=== PATIENT | female | born 1950 | race American Indian/Alaskan Native ===

== ENCOUNTER 2021-06-11 11:42 | Emergency (ER) | payer MEDICARE ==
[2021-06-11 13:02] VITALS: BP 194/104
--- NOTE | 2021-06-11 15:39 | Emergency Department Report ---
ED Extremity Problem HPI - General Chief complaint: Extremity Injury, Lower Stated complaint: RT SIDE PAINS,LEG Source: patient Mode of arrival: Ambulatory Limitations: No Limitations - History of Present Illness Initial comments: 70-year-old -[place] female presents to the emergency room for right leg pain for 1 week. Patient denies any injury. Patient states that the pain is sharp and it radiates up her leg to her hip. States she has been taking Tylenol for pain. Patient denies any numbness to her leg. She does have a history of smoking cigarettes. History of hypertension depression is currently medicated. Nothing makes the pain worse pain medication makes it better. Complaint: extremity pain Onset/Timin -: week(s) Location: right, lower extremity -: Yes myalgia Severity scale (0 -10): 7 Quality: aching Consistency: intermittent Improves with: medication Worsens with: nothing Associated Symptoms: denies other symptoms - Related Data Previous Rx's Medication Instructions Recorded Last Taken Type Naproxen 500 mg PO Q12H PRN #20 tablet 06/11/21 Unknown Rx Allergies Allergy/AdvReac Type Severity Reaction Status Date / Time No Known Allergies Allergy Unverified 06/11/21 12:59 ED Review of Systems ROS: Stated complaint: RT SIDE PAINS,LEG Other details as noted in HPI Comment: All other systems reviewed and negative ED Past Medical Hx - Medications Home Medications: Home Medications Medication Instructions Recorded Confirmed Last Taken Type Naproxen 500 mg PO Q12H PRN #20 tablet 06/11/21 Unknown Rx ED Physical Exam - General Limitations: No Limitations General appearance: alert, in no apparent distress - Head Head exam: Present: atraumatic, normocephalic - Eye Eye exam: Present: normal appearance - ENT ENT exam: Present: normal external ear exam - Neck Neck exam: Present: normal inspection, full ROM - Respiratory Respiratory exam: Present: normal lung sounds bilaterally - Cardiovascular Cardiovascular Exam: Present: regular rate - Expanded Lower Extremity Exam Right Hip exam: Present: normal inspection Upper Leg exam: Present: normal inspection Knee exam: Present: normal inspection Lower Leg exam: Present: tenderness, dislocation (Hyperpigmented) Ankle exam: Present: normal inspection, full ROM Foot/Toe exam: Present: normal inspection, full ROM ED Course Vital Signs 06/11/21 12:59 Temperature 99 F Pulse Rate 83 Respiratory 17 Rate Blood Pressure 194/104 [Right] O2 Sat by Pulse 96 Oximetry ED Medical Decision Making - Radiology Data Radiology results: report reviewed [facility] [address] [place] [address] Vascular Lab Report Signed Patient: HANY BERNAL MR#: [id number] : 1950 Acct:[id number] Age/Sex: 70 / F ADM Date: 06/11/21 Loc: ED Attending Dr: Ordering Physician: NIXON CLANCY Date of Service: 06/11/21 Procedure(s): VL venous duplex LE RT Accession Number(s): [id number] cc: NIXON CLANCY DUPLEX DOPPLER LOWER EXTREMITY VEINS, RIGHT INDICATION: Right lower pain calf smokes cigarettes. TECHNIQUE: Duplex doppler imaging was performed through the veins of the right lower extremity using venous compression and other maneuvers. COMPARISON: No relevant prior imaging study available. FINDINGS: Right Common femoral vein: Negative. Right Superficial femoral vein: Negative. Right Popliteal vein: Negative. Right Calf veins: Negative. Additional findings: None. IMPRESSION: No sonographic evidence for DVT in the right lower extremity. Signer Name: Zackary Villafana Jr, MD Signed: 06/11/2021 4:10 PM Workstation Name: [email or web address] Transcribed By: TTR Dictated By: ZACKARY VILLAFANA JR, MD Electronically Authenticated By: ZACKARY VILLAFANA JR, MD Signed Date/Time: 06/11/211609 DD/ 09 TD/TT: Print Cancel - Medical Decision Making 70-year-old -[place] female presents to the emergency room for right leg pain for 1 week. Patient denies any injury. Patient states that the pain is sharp and it radiates up her leg to her hip. States she has been taking Tylenol for pain. Patient denies any numbness to her leg. She does have a history of smoking cigarettes. History of hypertension depression is currently medicated. Nothing makes the pain worse pain medication makes it better. Doppler right lower extremity has been ordered. Dopplers negative. Patient will be given prescription for naproxen and recommend to discontinue smoking cigarettes as this can be a cause of left leg pain. Critical care attestation.: If time is entered above; I have spent that time in minutes in the direct care of this critically ill patient, excluding procedure time. ED Disposition Clinical Impression: Right leg pain Disposition: TO HOME OR SELFCARE Is pt being admited?: No Does the pt Need Aspirin: No Condition: Stable Instructions: Pain Without a Known Cause Additional Instructions: Ultrasounds negative for a blood clot. I recommend taking pain medication and keep your appointment with your primary care provider. Prescriptions: Naproxen 500 mg PO Q12H PRN #20 tablet PRN Reason: Pain , Severe (7-10) Referrals: Your, primary care provider [Other] - 3-5 Days Time of Disposition: 16:20
--- NOTE | 2021-06-11 16:15 | Vascular Lab Report ---
DUPLEX DOPPLER LOWER EXTREMITY VEINS, RIGHT INDICATION: Right lower pain calf smokes cigarettes. TECHNIQUE: Duplex doppler imaging was performed through the veins of the right lower extremity using venous compression and other maneuvers. COMPARISON: No relevant prior imaging study available. FINDINGS: Right Common femoral vein: Negative. Right Superficial femoral vein: Negative. Right Popliteal vein: Negative. Right Calf veins: Negative. Additional findings: None. IMPRESSION: No sonographic evidence for DVT in the right lower extremity. Signer Name: Zackary Villafana Jr, MD Signed: 06/11/2021 4:10 PM Workstation Name: [id number]
== END 2021-06-11 16:49 | disposition home or self-care (01) ==
LOC: ED 11:42
DX: M79.604 Pain in right leg (principal); Z79.899 Other long term (current) drug therapy